=== PATIENT | male | born 1980 | race Caucasian/White ===

== ENCOUNTER 2024-03-17 11:51 | Outpatient (CLI) | payer BC, SELFPAY ==
--- NOTE | ~2024-03-17 | MR_ITS ---
MRI of the right shoulder Technique: Axial proton-density fat-sat images, coronal proton density fat-sat and T2 fat-sat images, and sagittal T1-weighted and T2 fat-sat images were acquired. Clinical History: Pain Findings: There is [id number] AC joint degenerative change. Coracoclavicular, coracoacromial, a nd coracohumeral ligaments are intact. Possible focal tiny low-grade bursal surface partial tear at the posterior margin of the distal supra spinatus tendon. No high-grade partial or full-thickness tear of the supraspinatus or infraspinatus t endon seen. There is mild tendinosis. Subscapularis tendon is intact with moderate tendinosis. Tendon of long head of the biceps is intact. There is probable extensive degenerative tearing and attenuation of the labrum, especially the anteri or and anteroinferior portions, without definite, discrete, detached labral tear. There is glenohumeral joint space narrowing with extensive chondral malacia the inferior half of meme oid in the medial humeral head. Inferior glenohumeral ligament is intact. Small glenohumeral joint ef fusion present. There is a 1 cm loose body at the subscapularis recess of the joint. No muscle atroph y or edema. Minimal fluid within the subacromial/subdeltoid bursa. Impression: Moderate glenohumeral joint degenerative change with associated 1 cm loose body of the subscapularis recess. Rotator cuff tendinosis with possible tiny focal low-grade bursal surface partial tear at the posteri or margin of the distal supraspinatus tendon. No high-grade partial or full-thickness rotator cuff te ar seen. Probable extensive degenerative attenuation and tearing of the labrum. Reviewed, dictated and finalized at [facility]. Impression: Moderate glenohumeral joint degenerative change with associated 1 cm loose body of the subscapularis recess. Rotator cuff tendinosis with possible tiny focal low-grade bursal surface parti al tear at the posterior margin of the distal supraspinatus tendon. No high-gra de partial or full-thickness rotator cuff tear seen. Probable extensive degenerative attenuation and tearing of the labrum.
== END 2024-03-17 11:52 ==
LOC: MICIMG 11:52
PROVIDERS: PCP Registered Nurse; Visit Provider Registered Nurse
DX: M25.511 Pain in right shoulder (principal); M24.011 Loose body in right shoulder; M77.8 Other enthesopathies, not elsewhere classified
CPT/HCPCS: 73221